=== PATIENT | male | born 2000 | race African-American/Black ===

== ENCOUNTER 2025-03-26 12:33 | Emergency (ER) | payer BC ==
[~2025-03-26] VITALS: Ht 180.3 cm; Wt 120.0 kg
[2025-03-26 12:35] VITALS: O2SAT 99
[2025-03-26 12:37] VITALS: BP 134/64; PULSE 65; RESP 18; TEMP 36.9; O2SAT 99
[2025-03-26] MEDS ORDERED: IBUP-2028 MT (14:01)
== END 2025-03-26 14:36 | disposition home or self-care (01) ==
LOC: ER 12:33
DX: M25.531 Pain in right wrist (principal); M79.641 Pain in right hand; E11.9 Type 2 diabetes mellitus without complications
CPT/HCPCS: 73110; 99283

== ENCOUNTER 2025-05-04 17:24 | Emergency (ER) | payer BC ==
[~2025-05-04] VITALS: Ht 180.3 cm; Wt 81.6 kg
[~2025-05-04 17:24] MED LIST: IBUP-2028 MT
[2025-05-04 17:26] VITALS: O2SAT 99
[2025-05-04] MEDS ORDERED: IBUP-2029 MT (18:44)
[2025-05-04] MEDS: IBUPROFEN 600MG TABLET PO ONE (18:54)
[2025-05-04 18:56] VITALS: BP 152/74; PULSE 61; RESP 12; TEMP 36.6; O2SAT 98
== END 2025-05-04 19:03 | disposition home or self-care (01) ==
LOC: ER 17:24
DX: R51.9 Headache, unspecified (principal); R04.0 Epistaxis; E11.9 Type 2 diabetes mellitus without complications; Z79.899 Other long term (current) drug therapy
CPT/HCPCS: 99282